=== PATIENT | female | born 1975 | race Two or more races ===

== ENCOUNTER 2016-09-14 14:31 | Emergency (ER) | payer OTHER ==
[2016-09-14] MEDS ORDERED: KETOROLAC TROMETHAMINE 60 MG/2 ML VIAL ONE (15:05)
[2016-09-14] MEDS ORDERED: PROMETHAZINE HCL 25 MG/ML VIAL ONE (15:05)
[2016-09-14] MEDS ORDERED: HYDROMORPHONE HCL 1 MG/ML SYRINGE ONE (15:05)
== END 2016-09-14 15:59 | disposition home or self-care (01) ==
LOC: ED 14:31
DX: R51 Headache (principal)
CPT/HCPCS: 99282; 96372 ×2; 99283; J1170; J2550; J1885